=== PATIENT | female | born 1955 | race African-American/Black ===

== ENCOUNTER 2017-06-06 09:37 | Inpatient (IN) | payer MEDICARE, MEDICAID ==
[2017-06-06] MEDS ORDERED: methylPREDNISolone Sod Succ/PF 125 MG/2 ML VIAL ONE (09:55)
[2017-06-06 10:12] LABS: #Eosinphils 0.1 thou/uL (0.0-0.7); #Lymphocytes 1.1 thou/uL (1.20-3.40); #Monocytes 2.4 thou/uL (0.11-0.59); #Neutrophils 16.2 thou/uL (1.40-6.50); %Basophils 0.1 % (0.0-1.0); %Eosinophils 0.3 % (0.0-10.0); %Lymphocytes 5.5 % (21.0-51.0); %Monocytes 12.1 % (0.0-10.0); %Neutrophils 82.1 % (42.0-75.0); Mean Corpuscular HGB CONC 28.7 g/dL (32.0-36.0); Mean Corpuscular Hemoglobin 20.7 pg (27.0-31.0); Mean Corpuscular Volume 72.1 fl (81.0-99.0); Mean Platelet Volume 8.2 fL (7.4-10.4); Platelet Count 568 thou/uL (130-400); RBC Distribution Width 16.9 % (11.5-14.5); Red Blood Cell (RBC) Count 3.37 mill/uL (4.20-5.40); White Blood Cell (WBC) Count 19.8 thou/uL (4.8-10.8)
--- NOTE | 2017-06-06 10:15 | RAD ---
PORTABLE CHEST ONE VIEW: History: Dyspnea. Date: 06-06-17 Time: 10:08 a.m. History: Dyspnea. FINDINGS: Comparison is made with 08-13-12. The heart size is normal. The lungs are well expanded without focal areas of consolidation, pneumotho rax or pleural effusions. IMPRESSION: No radiographic evidence of acute cardiopulmonary process. POS: [facility]
[2017-06-06 10:26] LABS: Hypochromia MODERATE=16-30 cells (100X) (0-5/hpf); MDiff Complete? YES; Microcytosis MODERATE=15-30 cells (100X) (0-5/hpf); PLT Morphology Comment Appears Increased; Polychromasia SLIGHT = 2-3 cells (100X) (0-2/hpf); Reflex for Review?? YES; Target Cells SLIGHT = 2-5 cells (100X) (0-1/hpf)
[2017-06-06 10:40] LABS: ALT (SGPT) 19 U/L (8-55); AST (SGOT) 81 U/L (5-34); Albumin 3.3 g/dL (3.5-5.0); Alkaline Phosphatase 348 U/L (40-150); Anion Gap 13 mmol/L (10-20); BUN (Urea Nitrogen) 11 mg/dL (9.8-20.1); Bilirubin, Total 0.9 mg/dL (0.2-1.2); CK (CPK) 336 U/L (29-168); Calc. Creatinine Clearance 0 mL/min (70-130); Calcium 8.9 mg/dL (7.8-10.44); Carbon Dioxide 28 mmol/L (22-29); Chloride 97 mmol/L (98-107); Estimated GFR-MDRD Greater than 90; Globulin 3.6 g/dL (2.4-3.5); Glucose 110 mg/dL (70-105); Lipase 20 U/L (8-78); Potassium 3.2 mmol/L (3.5-5.1); Protein, Total 6.9 g/dL (6.0-8.3); Sodium 135 mmol/L (136-145)
[2017-06-06 10:45] LABS: CKMB 3.9 ng/mL (0-6.6); Troponin I Less than 0.010 ng/mL (< 0.028)
[2017-06-06 10:55] LABS: Actual Bicarbonate (HCO3a) 28.1 mEq/L (22-26); Base Excess (BEa) 4.4 mEq/L (0 (+/-) 2.5); CO2 Tension 37.6 mmHg (35.0-45.0); Hematocrit-ABG 27.4 % (36.0-47.0); Hemoglobin (Hb) 6.5 g/dL (12.0-16.0); O2 Tension (PaO2) 107.4 mmHg (80.0-100.0); pH, Arterial 7.49 (7.35-7.45)
[2017-06-06 10:56] LABS: Analyzer IN Cardio ER; Calcium, Ionized 1.1 mmol/L (1.12-1.30); Puncture Site LRA
[2017-06-06 12:01] LABS: CO2 Tension 51.8 mmHg (35.0-45.0); O2 Tension (PaO2) 55.5 mmHg (80.0-100.0); pH, Arterial 7.35 (7.35-7.45)
[2017-06-06 12:02] LABS: Analyzer IN Cardio ER; Base Excess (BEa) 2.1 mEq/L (0 (+/-) 2.5); Calcium, Ionized 1.1 mmol/L (1.12-1.30); Hemoglobin (Hb) 6.9 g/dL (12.0-16.0)
[2017-06-06 12:03] LABS: Puncture Site LBA
--- NOTE | 2017-06-06 12:06 | CT ---
CT ANGIO CHEST PERFORMED WITH INTRAVENOUS CONTRAST ENHANCEMENT WITH 3D RECONSTRUCTIONS: Date: 06/06/17 HISTORY: Dyspnea. FINDINGS: The lungs are clear of any infiltrative process. No pulmonary nodules or pleural effusions are demons trated. There is a destructive lytic bone lesion involving the posterolateral left 9th rib. There are innumerable masses involving the liver. The thoracic aorta is normal in caliber. There is fairly good pulmonary artery opacification. No CT e vidence for pulmonary embolus. Only a portion of the colon is visualized, but there is an area in the splenic flexure where the colo n wall appears thickened. IMPRESSION: 1. No CT evidence of pulmonary embolus. 2. Innumerable masses throughout the liver, compatible with metastatic disease. There is also what a ppears to be some probable periportal adenopathy. There is a lytic posterolateral 9th rib lesion also identified. All these features are suggestive of metastatic disease. There is some colon wall thicke pavithra in the splenic flexure region which is partially visualized on this exam and could be the primar y malignancy. Findings discussed with referring physician. CODE CR. POS: [facility]
[2017-06-06] MEDS ORDERED: Lactated Ringer's 1,000 ML IV SCH (14:45)
--- NOTE | 2017-06-06 14:46 | RAD ---
PORTABLE SUPINE CHEST: Date: 06/06/17 HISTORY: Post intubation. COMPARISON: Earlier exam from same date. FINDINGS: Endotracheal and NG tubes have been placed, which appear to be in satisfactory position. No new findi ngs. IMPRESSION: Endotracheal and NG tubes in satisfactory position. POS: [facility]
[2017-06-06 15:00] LABS: Hemoglobin 6.7 g/dL (12.0-16.0)
[2017-06-06 15:05] LABS: INR-International Normal Ratio 1.1; Prothrombin Time 13.8 SEC (12.0-14.7)
[2017-06-06] MEDS ORDERED: Potassium Chloride 40 MEQ in Sodium Chloride 0.9% 500 ML IVPB SCH (15:15)
[2017-06-06] MEDS ORDERED: Pantoprazole 40 MG VIAL IVP SCH (15:15)
--- NOTE | 2017-06-06 15:36 | CON ---
DATE OF CONSULTATION: 06/06/2017 SERVICE: Pulmonary Medicine. REASON FOR CONSULTATION: Respiratory failure. HISTORY OF PRESENT ILLNESS: The patient is a 61-year-old -[place] female with past medical history significant for essentially nothing. She has a remote history of smoking. Apparently she has some degree of COPD. It is not clear whether or not she is taking any medications for this. Ultimately, she was in her usual state of health until 3 days ago. She had a gradual onset of increasing difficulty with breathing. She also noted epigastric discomfort. Outside of this, really not certain what brought her to the hospital. She cannot provide me any additional elements of the history because she currently is sedated and intubated. PAST MEDICAL HISTORY: 1. COPD. 2. History of tobacco abuse. PAST SURGICAL HISTORY: 1. Tubal ligation. 2. Thyroid surgery. ALLERGIES: No known drug allergies. MEDICATIONS: List of her inpatient medications were reviewed and multiple updates were made. SOCIAL HISTORY: She previously lived in [place]. She has a 60-pack- year history of smoking, but quit over 10 years ago. She previously denied any alcohol or illicit drugs. FAMILY HISTORY: Likely noncontributory. REVIEW OF SYSTEMS: This cannot be obtained as the patient is currently intubated and sedated. PHYSICAL EXAMINATION: VITAL SIGNS: Afebrile, pulse 66, blood pressure 109/70, respirations 20, saturation 95% on 27% FIO2 and a PEEP of 5. HEENT: Normocephalic, atraumatic. Sclerae white, conjunctivae pale. LUNGS: Excellent air entry. There is minimally prolonged expiratory phase. I do not appreciate any adventitious sounds, wheezing, rhonchi, or crackles. HEART: Normal rate, regular. ABDOMEN: Soft, nontender, nondistended. Bowel sounds are positive. There is no rebound or guarding noted. : Otero catheter in place. NEUROLOGIC: Grossly nonfocal. MUSCULOSKELETAL: No cyanosis or clubbing. There is no pitting in the bilateral lower extremities. LABORATORY DATA: WBC is 19.8, hemoglobin 7.0 (baseline of 10-11 in 10/2016), platelets 568,000. D-dimer 3.2. PH 7.35, pCO2 of 51, pO2 of 55. This was on SIMV at that time. Please note that while the patient was on BiPAP on presentation to the hospital, she actually had a respiratory alkalosis. Alkaline phosphatase is 348. AST is minimally elevated. ALT falls within normal limits. Potassium 3.2. Basic metabolic profile is otherwise unremarkable. Her creatinine is stable at 0.68. BNP 120.9. Lipase is negative , cardiac enzymes are negative x1. CRP is minimally elevated at 0.55. Blood cultures x2 are unremarkable. IMAGING: CTA of the chest demonstrates no evidence of pulmonary embolism. There is no acute cardiopulmonary abnormality. Lungs are hyperexpanded. There are several masses and nodular lesions throughout the liver. There is also thickening of the sigmoid region of the colon. There is what appeared to be bony involvement throughout the skeletal system as well. ASSESSMENT: 1. Acute hypoxic respiratory failure. 2. Chronic obstructive pulmonary disease without evidence of acute exacerbation. 3. Anemia, possibly acute. 4. Epigastric pain. 5. Metastatic disease involving liver and bones with sigmoid colon thickening, primary unknown. PLAN: We will check her INR and TSH. Couple of doses of potassium will be provided. We are going to transfuse 2 units of blood as my suspicion is the patient's difficulty with breathing was secondary to acute or subacute anemia. We are going to trend the hemoglobins through time and make certain that she maintain hemoglobin greater than 7. Pulmonary Critical Care will continue to follow while the patient remains in this location. Truth be told, her lung disease is minimal and/or nonexistent. COPD exacerbation is not the reason the patient is in the hospital or on the ventilator based on her current respiratory support that is required. We will continue her nebulized medications, but I will de-escalate her steroids to once daily dosing. Antibiotics will be suspended as I have no evidence of infection. CRITICAL CARE TIME: 30 minutes. MTDD
[2017-06-06] MEDS: Pantoprazole 40 MG VIAL IVP SCH (15:39)
[2017-06-06] MEDS: Sodium Chloride 0.9% 1,000 ML IV SCH (15:40)
[2017-06-06] MEDS ORDERED: Propofol 1,000 MG/100 ML VIAL IV ONE (16:44)
[2017-06-06] MEDS ORDERED: DISCONTINUE PREVIOUS NARCOTIC PAIN MEDICATIONS AND BENZODIAZEPINES FS SCH (16:50)
[2017-06-06] MEDS ORDERED: Lorazepam 2 MG/ML VIAL SLOW IVP PRN (16:50)
[2017-06-06] MEDS ORDERED: fentaNYL Citrate/PF 2,000 MCG in Sodium Chloride 0.9% 60 ML IV SCH (16:50)
[2017-06-06] MEDS ORDERED: ISOVUE-370 76%-LOCM 1 ML ONE (16:54)
[2017-06-06] MEDS ORDERED: GoLYTELY 4,000 ml Bottle PO SCH (18:00)
[2017-06-06] MEDS ORDERED: FLU VACC QS2017-18 36 mo. & older 0.5 ML SYRINGE IM ONE (21:00)
[2017-06-06] MEDS ORDERED: Famotidine 20 MG TAB PO SCH (21:00)
[2017-06-06] MEDS ORDERED: Prevnar 13-Val Conj/PF 0.5 ML SYRINGE IM ONE (21:00)
[2017-06-06] MEDS: Propofol 1,000 MG/100 ML VIAL IV PRN (21:25)
--- NOTE | 2017-06-06 23:24 | CON ---
DATE OF CONSULTATION: 06/06/2017 REASON FOR CONSULTATION: Abnormal GI imaging, anemia. CONSULTING PHYSICIAN: Kush Moya MD HISTORY OF PRESENT ILLNESS: The patient is a 61-year-old -Swazi female with past medical h istory of tobacco abuse, COPD, initially presenting with complaints of increased shortness of breath and respiratory distress. She was seen in the ER with complaints of increased work of breathing and shortness of breath and experienced acute respiratory distress while being evaluated. She was subseq uently intubated and sedated for better control on her breathing status; however, upon routine labs, she was noted to have significant anemia as well as abnormal imaging with innumerable liver masses co nsistent with metastatic disease. At the current time, she is intubated and sedated, and unable to contribute to any further history wi th the remainder of the information obtained per chart review. REVIEW OF SYSTEMS: A 10-category review of systems cannot be obtained at this time due to the patien t's intubation/sedation status. PAST MEDICAL HISTORY: As per HPI. PAST SURGICAL HISTORY: Tubal ligation, thyroid surgery. FAMILY HISTORY: Unable to be obtained due to the patient being intubated/sedated. SOCIAL HISTORY: Unable to be obtained due to the patient's status of intubation/sedation. INPATIENT MEDICATIONS: Reviewed. ALLERGIES: No known drug allergies. PHYSICAL EXAMINATION: VITAL SIGNS: Temperature of 98.5, pulse 79, blood pressure 156/97, respiratory rate 20, satting 100% on mechanical ventilation. GENERAL: Patient is intubated and sedated with no apparent distress or grimacing noted. NECK: Supple. No JVD noted. CARDIOVASCULAR: Regular rate and rhythm with no discernible murmurs, gallops, or rubs. RESPIRATORY: Clear to auscultation bilaterally with no discernible wheezes or rales. ABDOMEN: Normoactive bowel sounds, soft, nondistended, mild grimacing to palpation in the right uppe r quadrant region as well as hepatomegaly noted. EXTREMITIES: No cyanosis, clubbing, or edema. LABORATORY DATA: CBC with a white blood cell count of 19.8, hemoglobin 7, hematocrit 24.3, platelets 568. Chemistry with a sodium of 135, potassium 3.2, chloride 97, CO2 of 28, BUN 11, creatinine 0.68 , glucose 110, AST 81, ALT 19, alkaline phosphatase 348, total bilirubin 0.9. BNP 120. CK 336, albu min 3.3, lipase 20. IMAGING DATA: CT angiography performed on 06/06/2017 showing innumerable masses throughout the liver compatible metastatic disease. There is also a lytic posterolateral of 9th rib lesion also suggesti ve of metastatic disease and lastly, there was some colon wall thickening within the splenic flexure region, which could be a potential primary source. ASSESSMENT AND PLAN: The patient is a 61-year-old female with past medical history of COPD and tobac co abuse presenting with respiratory distress and abnormal GI imaging and anemia. 1. Anemia/abnormal GI imaging. The patient is initially presenting with complaints of increased agueda rtness of breath and work of breathing, but ultimately progressed to respiratory distress and ultimat e intubation and sedation. On review of routine labs, she was noted to be significantly anemic bear rning for possible underlying process; however, with CT of the chest as part of the workup, she was n oted to have innumerable liver masses consistent with metastatic disease in the ribs and a possible s plenic flexure or colonic malignancy primary. At this time, a colonic malignancy could generate the anemia that we are seeing as well as the liver abnormalities on imaging and endoscopic evaluation tariq l be indicated. RECOMMENDATIONS: 1. Would continue to trend H and H and transfuse as necessary to maintain an H and H of 7/21. 2. Would continue to monitor clinically for signs of overt gastrointestinal bleeding. 3. We will plan for both EGD and colonoscopy tomorrow for evaluation of anemia and possible primary colonic malignancy. Please place the patient n.p.o. at midnight tonight with GoLYTELY prep in prepar ation for colonoscopy tomorrow. We will continue to follow. Please call with any questions.
[2017-06-07] MEDS: Propofol 1,000 MG/100 ML VIAL IV PRN ×6 (02:08→22:19)
--- NOTE | 2017-06-07 06:02 | HP ---
DATE OF ADMISSION: 06/06/2017 REASON FOR ADMISSION AND CHIEF COMPLAINT: Shortness of breath. HISTORY OF PRESENT ILLNESS: Ms. León is a 61-year-old -Algerian female with past medical history of COPD, came because of shortness of breath. No history available from the patient. The patient is intubated and sedated. According to the ER chart, the patient's shortness of breath was getting worse in the last 3 days, to the point she could not breathe and also had some epigastric pain as well. The patient describes that shortness of breath as chest tightness as well as wheezing. The patient came to the emergency room, where she was evaluated and found to be in acute respiratory distress, initially put on BiPAP. The patient also used inhalers at home. The patient also received DuoNebs treatment as well as Solu-Medrol in the ER. The patient had a CT angio chest showed no pulmonary embolism, but showed possible mets to the liver. She also gave history to the ER physician that she had black stools with weight loss lately. The patient was intubated because of increased somnolence and chest tightness, and admitted to CCU. The patient was started on blood transfusion as well. PAST MEDICAL HISTORY: COPD and chronic pain ankle arthritis, depression PAST SURGICAL HISTORY: 1. Status post thyroid surgery, left lobe 2. Status post tubal ligation. 3. s/p total hysterectomy CURRENT MEDICATIONS: prozac 20 mg daily, albuterol sulphate HFA inhaler 2 puffsqid prn, tramadol prn FAMILY HISTORY: nothing significant. ALLERGIES: NKDA. SOCIAL HISTORY: The patient lives alone. History of [id number] history in the past, quit smoking. No history of alcohol or illicit drug use. REVIEW OF SYSTEMS: Unable to obtain because the patient is intubated and sedated. PHYSICAL EXAMINATION: GENERAL: The patient is sedated and intubated. VITAL SIGNS: Temperature 98, pulse 66, respirations 20, blood pressure 110/70. HEENT: Head is normocephalic, atraumatic. Pupils equal and reactive to light. Nasopharynx could not be examined. LUNGS: Breath sounds diminished bilaterally. Expiratory wheeze present bilaterally. Rhonchi present. HEART: S1 and S2 regular. ABDOMEN: Soft, no distention, no tenderness. Normal bowel sounds present. RECTAL: Rectal exam done showed melena stool in the ER. LABORATORY DATA: CBC shows WBC of 19,000, hemoglobin 7, hematocrit 24, platelets 568,000. Prothrombin time 13, INR 1.0. ABG showed pH of 7.49, pCO2 of 37, pO2 of 107, saturation 98%. Metabolic panel shows sodium 135, potassium 3.8, chloride 97, CO2 of 28, BUN 11, creatinine 0.6, glucose 110, alkaline phosphate 348, creatine kinase 336, ALT 19, AST 81. BNP 120. Troponin I less than 0.010. Chest x-ray showed no infiltrates. She has the endotracheal tube in place. CT of the chest showed no evidence of pulmonary embolism, showed multiple masses in the liver, possible metastasis, also showed lytic lesion in the 9th rib, also there is thickening in the colon wall. ASSESSMENT: 1. Acute respiratory failure. 2. Chronic obstructive pulmonary disease with acute exacerbation. 3. Severe anemia. 4. Possible metastasis to the liver and left 9th rib. 5. Rule out colon cancer. 6. Hypokalemia. 7. History of black stools and weight loss. PLAN: 1. CCU monitoring. 2. Ventilator support. 3. Solu-Medrol IVP 20 q.6 hours. 4. DuoNebs q.4 hours one unit. 5. Transfuse 2 units of packed red blood cells. 6. KCl replacement. 7. CBC and base met in the morning. 8. Pulmonary consult. 9. GI consult. VALERIA
[2017-06-07 06:10] LABS: ALT (SGPT) 19 U/L (8-55); AST (SGOT) 74 U/L (5-34); Alkaline Phosphatase 308 U/L (40-150); Anion Gap 12 mmol/L (10-20); BUN (Urea Nitrogen) 17 mg/dL (9.8-20.1); Bilirubin, Total 1.6 mg/dL (0.2-1.2); Calc. Creatinine Clearance 70 mL/min (70-130); Calcium 8.6 mg/dL (7.8-10.44); Carbon Dioxide 28 mmol/L (22-29); Chloride 106 mmol/L (98-107); Estimated GFR-MDRD Greater than 90; Globulin 3.4 g/dL (2.4-3.5); Glucose 90 mg/dL (70-105); Magnesium 2.1 mg/dL (1.6-2.6); Phosphorus 3.3 mg/dL (2.3-4.7); Potassium 3.9 mmol/L (3.5-5.1); Protein, Total 6.4 g/dL (6.0-8.3); Sodium 142 mmol/L (136-145)
[2017-06-07 06:47] LABS: Hemoglobin 8.8 g/dL (12.0-16.0); Mean Corpuscular HGB CONC 29.6 g/dL (32.0-36.0); Mean Corpuscular Hemoglobin 23.1 pg (27.0-31.0); Mean Corpuscular Volume 78.1 fl (81.0-99.0); Mean Platelet Volume 8.7 fL (7.4-10.4); Platelet Count 468 thou/uL (130-400); RBC Distribution Width 18.4 % (11.5-14.5); White Blood Cell (WBC) Count 24.9 thou/uL (4.8-10.8)
[2017-06-07 07:58] LABS: Band 4 % (5-11); Eosinophils 1 % (0-10); Hypochromia MODERATE=16-30 cells (100X) (0-5/hpf); Lymphocytes 3 % (21-51); MDiff Complete? YES; Microcytosis SLIGHT = 6-15 cells (100X) (0-5/hpf); Monocytes 5 % (0-10); Neutrophil 87 % (42-75); PLT Morphology Comment Appears Increased; Polychromasia SLIGHT = 2-3 cells (100X) (0-2/hpf); Target Cells SLIGHT = 2-5 cells (100X) (0-1/hpf)
[2017-06-07] MEDS: Sodium Chloride 0.9% 1,000 ML IV SCH (08:04)
[2017-06-07] MEDS: Pantoprazole 40 MG VIAL IVP SCH ×2 (08:16→20:00)
[2017-06-07] MEDS: Sodium Chloride 0.45% 1,000 ML IV SCH ×2 (10:33→20:00)
--- NOTE | 2017-06-07 11:28 | PRG ---
DATE OF SERVICE: 06/07/2017 SERVICE: Pulmonary Medicine. INTERVAL HISTORY: The patient is doing really well from a respiratory standpoint. On a sedation holiday, she is appropriate. She gets a little bit agitated, but she moves all 4 extremities and breathes comfortably over the ventilator. She is on minimal ventilator settings. The plan is to do an EGD and colonoscopy today. After that, weaning will be initiated. She cannot provide any additional elements of the history, because she is back on sedation. Otherwise, there has been no interval change to her condition. Her tachycardia has resolved with 2 units of blood that she got yesterday. PHYSICAL EXAMINATION: VITAL SIGNS: Afebrile, pulse 74, blood pressure 136/79, respirations 22, saturation 100% on 23% FiO2 and PEEP of 5. GENERAL: The patient is intubated and sedated. HEENT: Normocephalic, atraumatic. Sclerae are white, conjunctivae pink. Oral and nasal mucosa is moist without lesions. LUNGS: Excellent air entry. Minimally prolonged expiratory phase. No rhonchi or wheezing is appreciated. HEART: Normal rate, regular. ABDOMEN: Soft, nontender, nondistended. Bowel sounds are positive. No rebound or guarding is appreciated. HEART: Normal rate and regular. MUSCULOSKELETAL: No cyanosis or clubbing. There is no pitting in the bilateral lower extremities. NEUROLOGIC: Grossly nonfocal. LABORATORY DATA: WBC 24.9, hemoglobin 8.8, platelets 268,000. Neutrophil count is 87%. INR 1.1. Basic metabolic profile is otherwise unremarkable. Total bilirubin is going up to 1.6, AST is stable. ALT is gently down trending. BNP was previously 120, TSH was normal. ASSESSMENT: 1. Acute hypoxic respiratory failure, resolved. 2. Chronic obstructive pulmonary disease without current exacerbation. 3. Acute blood loss anemia. 4. Epigastric pain on presentation. 5. Metastatic disease involving the liver, bones, and sigmoid colon thickening , primary unknown. DISCUSSION AND PLAN: I will repeat a hemoglobin at noon today. Supportive measures will be continued, so she can have the EGD and colonoscopy. After this is done, she will be given a sedation holiday and extubation will be considered. Pulmonary and Critical Care will continue to follow while the patient remains in this location. CRITICAL CARE TIME: 30 minutes. MTDD
[2017-06-07 12:14] LABS: Hemoglobin 8.9 g/dL (12.0-16.0)
--- NOTE | 2017-06-07 21:53 | OP ---
PREOPERATIVE DIAGNOSIS: Hepatic metastases of unknown origin. PROCEDURE: After informed consent was obtained, the patient was placed in the left lateral decubitus position. Anesthesia was administered per the Anesthesia Department. Forward-viewing endoscope was inserted into the esophagus under direct visualization with ease and passed to the second portion of the duodenum. The second portion of the duodenum and the duodenal bulb were normal except for some nodules. These nodules were biopsied and seemed to be somewhat fluid filled. The remainder of the d uodenum was normal. The pylorus, antrum, body, fundus, and cardia were normal. Retroflexion of the stomach was normal. The esophagus was normal throughout. ASSESSMENT: 1. Fluid filled submucosal nodules - status post biopsy. 2. Otherwise, normal esophagogastroduodenoscopy. RECOMMENDATIONS: 1. Await histopathology. 2. Proceed with colonoscopy. PROCEDURE: After informed consent was obtained, the patient was placed in the left lateral decubitus position. Anesthesia was administered per the Anesthesia Department. Forward-viewing endoscope was inserted into the rectum after perianal inspection and rectal exam were normal. The prep was subopt imal, but had approximately 40 cm. A complete circumferential mass was noted. This mass could not b e passed with the colonoscope. It was biopsied near the mass in the more proximal or distal region, next to the mass was a large polypoid lesion. This was also approximately 40 cm. The remainder of t he sigmoid and rectum were normal. Retroflexion in the rectum was normal. ASSESSMENT: 1. Near obstructing colon mass at approximately 40 cm - status post biopsy. 2. Otherwise, normal incomplete colonoscopy. RECOMMENDATIONS: 1. Await histopathology. 2. CEA.
[2017-06-08] MEDS: Propofol 1,000 MG/100 ML VIAL IV PRN (02:37)
[2017-06-08] MEDS: Sodium Chloride 0.45% 1,000 ML IV SCH ×2 (05:15→15:31)
[2017-06-08 06:26] LABS: #Lymphocytes 1.6 thou/uL (1.20-3.40); #Monocytes 2.8 thou/uL (0.11-0.59); #Neutrophils 19.1 thou/uL (1.40-6.50); %Basophils 0.1 % (0.0-1.0); %Eosinophils 0.2 % (0.0-10.0); %Monocytes 11.9 % (0.0-10.0); %Neutrophils 80.8 % (42.0-75.0); Hemoglobin 8.9 g/dL (12.0-16.0); Hypochromia MODERATE=16-30 cells (100X) (0-5/hpf); MDiff Complete? YES; Mean Corpuscular HGB CONC 29.2 g/dL (32.0-36.0); Mean Corpuscular Hemoglobin 22.8 pg (27.0-31.0); Mean Corpuscular Volume 77.8 fl (81.0-99.0); Mean Platelet Volume 8.9 fL (7.4-10.4); PLT Morphology Comment Appears Increased; Platelet Count 453 thou/uL (130-400); RBC Distribution Width 19.4 % (11.5-14.5); Red Blood Cell (RBC) Count 3.93 mill/uL (4.20-5.40); Target Cells SLIGHT = 2-5 cells (100X) (0-1/hpf); White Blood Cell (WBC) Count 23.6 thou/uL (4.8-10.8)
[2017-06-08 06:30] LABS: Anion Gap 11 mmol/L (10-20); BUN (Urea Nitrogen) 20 mg/dL (9.8-20.1); Calc. Creatinine Clearance 88 mL/min (70-130); Calcium 8.3 mg/dL (7.8-10.44); Carbon Dioxide 28 mmol/L (22-29); Chloride 104 mmol/L (98-107); Estimated GFR-MDRD Greater than 90; Potassium 3.4 mmol/L (3.5-5.1); Sodium 140 mmol/L (136-145)
[2017-06-08 06:33] LABS: Glucose 59 mg/dL (70-105)
[2017-06-08] MEDS ORDERED: Dextrose 50% Abboject 50 ML SYRINGE ONE (06:33)
[2017-06-08] MEDS ORDERED: Dextrose 50% Abboject 50 ML SYRINGE SLOW IVP SCH (06:45)
[2017-06-08] MEDS: Pantoprazole 40 MG VIAL IVP SCH ×2 (08:51→19:55)
[2017-06-08] MEDS ORDERED: Potassium Chloride 20 MEQ in Premix Bag 1 BAG IVPB SCH (15:30)
[2017-06-08 15:39] LABS: Bilirubin Small (Negative); Blood, Urine Negative (Negative); Clarity CLEAR (Clear); Glucose, Urine (Dipstick) Negative (Negative); Leukocyte Small (Negative); Nitrite Negative (Negative); Protein, Urine (Dipstick) Trace mg/dL (Neg-Trace); Specific Gravity, Urine 1.021 (1.002-1.036)
[2017-06-08 15:42] LABS: Bacteria/HPF None Seen HPF (None Seen); Hyaline Casts/LPF 7-10 HYALINE CAST LPF (0-3 Hyaline); Pathc Cast-AUWi Flag 1.62 (0-2.49); RBC/HPF 0-3 HPF (0-3); Squamous Epithelial 0-3 HPF (0-3); WBC/HPF 0-3 HPF (0-3)
--- NOTE | 2017-06-08 16:01 | PRG ---
DATE OF SERVICE: 06/08/2017 REASON FOR CONSULTATION: Abnormal GI imaging, anemia. SUBJECTIVE: The patient is doing well overnight without any acute problems or events. She had been off of sedation since this morning and while on minimal vent settings, has been able to tolerate this hemisphere just fine. Current plan is to extubate later on today. She also had an upper and lower endoscopy done yesterday with adequate visualization of both the upper and lower GI tract. At the cu rrent time, the patient is alert and oriented and able to respond to the affirmative or negative with nods or shaking of her head. Currently, denies any nausea, vomiting, fevers, chills, or pain. OBJECTIVE: VITAL SIGNS: Temperature 99, pulse 98, blood pressure 173/103, respiratory rate 22, satting 99% on m echanical ventilation. PHYSICAL EXAMINATION: GENERAL: The patient is lying in bed, in no acute distress, alert, but unable to respond to verbal q uestions due to intubation. NECK: Supple, no JVD noted. CARDIOVASCULAR: Regular rate and rhythm with no discernible murmurs, gallops or rubs. RESPIRATORY: Clear to auscultation bilaterally with no discernible wheezes or rales. ABDOMEN: Normoactive bowel sounds, soft, nondistended. Mild tenderness to palpation in the right up per quadrant region as well as hepatomegaly. EXTREMITIES: No cyanosis, clubbing or edema. LABORATORY DATA: CBC with white blood cell count of 23.6, hemoglobin 8.9, hematocrit 30.6, platelets 453. Chemistry with sodium of 140, potassium 3.4, chloride 104, CO2 of 28, BUN 20, creatinine 0.65, glucose 59. CEA 52.3. IMAGING DATA: Colonoscopy performed on 06/07/2017 showing small fluid-filled nodules within the seco nd portion of the duodenum, but otherwise no other abnormalities on the upper endoscopy. Colonoscopy showed a near obstructing colonic mass at approximately 40 cm past the anal verge and it could not b e traversed with the standard colonoscope. ASSESSMENT: The patient is a 61-year-old female with past medical history of chronic obstructive pul monary disease and tobacco abuse presenting with respiratory distress and abnormal gastrointestinal i maging consistent with metastatic disease. Metastatic disease: The patient initially presented with complaints of increased shortness of breath and work of breathin g, but ultimately progressed to respiratory distress and ultimately was intubated and sedated. On re view of labs on admission, she was noted to have a significant anemia concerning for a possible under lying process with the CT showing innumerable liver masses consistent with metastatic disease. She u ltimately underwent both upper and lower endoscopy on 06/07/2017 with the colonoscopy showing a large near obstructing colonic mass at approximately 40 cm past the anal verge. At this time, the most li casimiro reason for her liver findings on CT would be metastatic disease from a colonic primary as seen o n the colonoscopy. This could also generate the anemia seen on labs on admission as well. RECOMMENDATIONS: 1. Would continue to trend H and H and transfuse as necessary to maintain an H and H of 7/21. 2. We would consult General Surgery Service for evaluation of the patient and possible colostomy giv en the near obstructive nature of the colonic malignancy. 3. Would also consult Medical Oncology for evaluation of the patient and recommendations for possibl e chemotherapy and/or radiation. We will sign off at this time. Please call with any additional questions.
[2017-06-08 16:27] LABS: Crystals/HPF None Seen HPF (Negative)
[2017-06-08] MEDS: Piperacillin/Tazobactam 3.375 GM in Sodium Chloride 0.9% 100 ML IVPB SCH ×2 (16:40→19:55)
[2017-06-08] MEDS ORDERED: HYDROcodone/Acetaminophen 5/325 mg Tablet PO PRN (18:45)
--- NOTE | 2017-06-08 19:23 | PRG ---
DATE OF SERVICE: 06/08/2017 SERVICE: Pulmonary Medicine. INTERVAL HISTORY: The patient has done outstanding overnight from cardiovascular and respiratory perspective. She had an EGD yesterday demonstrating no significant pathology or evidence of where her blood was coming from. The subsequent colonoscopy demonstrated a mass. This was subjected to biopsy. This morning, she is breathing comfortably on spontaneous breathing trial. She has no complaints of fevers, chills, nausea, or vomiting, and is otherwise returning to her usual state of health. PHYSICAL EXAMINATION: VITAL SIGNS: Afebrile, pulse 96, blood pressure 178/103, respirations 29, saturation 100% on 21% FIO2 and PEEP of 5. GENERAL: The patient is awake and alert. She is in no apparent distress. HEENT: Normocephalic, atraumatic. Sclerae are white, conjunctivae pink. Oral and nasal mucosa is moist without lesions. LUNGS: Decent air entry. There is minimally prolonged expiratory phase without wheezing, rhonchi, or crackles. HEART: Normal rate, regular. ABDOMEN: Soft, nontender, nondistended. Bowel sounds are positive. MUSCULOSKELETAL: No cyanosis or clubbing. There is no pitting in the bilateral lower extremities. NEUROLOGIC: Grossly nonfocal. LABORATORY DATA: WBC 23.6 and stable, hemoglobin 8.9. Platelets 453,000. Glucose 59, but later improved. Potassium 3.4. CEA 52.6. Urinalysis is unremarkable. ASSESSMENT: 1. Acute hypoxic respiratory failure, resolved. 2. Chronic obstructive pulmonary disease without current exacerbation. 3. Acute blood loss anemia. 4. Metastatic disease including liver lesions, bone lesions, and colon lesion, status post biopsy during colonoscopy. DISCUSSION AND PLAN: We will give the patient spontaneous breathing trial. At the end of this thing, if she meets criteria, extubation will be considered. If she continues to breathe comfortably throughout the day, she can be considered for transition to the floor. I will replace her potassium. Critical care time: 30 minutes. MTDD
[2017-06-08] MEDS: cloNIDine 0.1 MG TAB PO PRN (19:55)
[2017-06-09] MEDS: Piperacillin/Tazobactam 3.375 GM in Sodium Chloride 0.9% 100 ML IVPB SCH ×4 (02:10→20:15)
[2017-06-09] MEDS: cloNIDine 0.1 MG TAB PO PRN (04:06)
[2017-06-09 05:41] LABS: Anion Gap 11 mmol/L (10-20); BUN (Urea Nitrogen) 9 mg/dL (9.8-20.1); Calc. Creatinine Clearance 92 mL/min (70-130); Calcium 8.8 mg/dL (7.8-10.44); Carbon Dioxide 28 mmol/L (22-29); Chloride 104 mmol/L (98-107); Estimated GFR-MDRD Greater than 90; Glucose 97 mg/dL (70-105); Potassium 3.5 mmol/L (3.5-5.1); Sodium 139 mmol/L (136-145)
[2017-06-09 06:23] LABS: Anisocytosis SLIGHT = 6-15 cells (100X) (0-5/hpf); Band 1 % (5-11); Hemoglobin 9.2 g/dL (12.0-16.0); Hypochromia MODERATE=16-30 cells (100X) (0-5/hpf); Lymphocytes 8 % (21-51); MDiff Complete? YES; Mean Corpuscular HGB CONC 30.3 g/dL (32.0-36.0); Mean Corpuscular Hemoglobin 23.4 pg (27.0-31.0); Mean Corpuscular Volume 77.3 fl (81.0-99.0); Mean Platelet Volume 8.9 fL (7.4-10.4); Monocytes 11 % (0-10); Neutrophil 80 % (42-75); Platelet Count 406 thou/uL (130-400); Polychromasia SLIGHT = 2-3 cells (100X) (0-2/hpf); RBC Distribution Width 19.8 % (11.5-14.5); Red Blood Cell (RBC) Count 3.93 mill/uL (4.20-5.40); White Blood Cell (WBC) Count 24.8 thou/uL (4.8-10.8)
[2017-06-09] MEDS: Pantoprazole 40 MG VIAL IVP SCH ×2 (08:42→20:14)
--- NOTE | 2017-06-09 10:29 | CON ---
DATE OF CONSULTATION: 06/09/2017 CHIEF COMPLAINT: Near obstructing colon mass. HISTORY OF PRESENT ILLNESS: This is a 61-year-old female who was actually admitted for respiratory d istress and intubated and found on CAT scan to have evidence of hepatic metastatic disease. She has undergone upper and lower endoscopy by Dr. Simeon revealing near obstructing likely cancer of 40 cm fro m anal verge. Her CEA level is significantly elevated. The patient was able to be prepped for the c olonoscopy and with the oral prep did have lots of diarrhea. The patient herself has some chronic de mentia and is not able to be trusted to answer questions properly at this time. She does state that she has no abdominal pain and she is hungry. PAST MEDICAL HISTORY: Includes COPD. PAST SURGICAL HISTORY: Includes tubal ligation, thyroid surgery. MEDICINES TAKEN DAILY: See list. ALLERGIES: No known drug allergies. SOCIAL HISTORY: Chronic smoker. Does not admit any alcohol or other drug use. REVIEW OF SYSTEMS: Ten system review of systems otherwise negative unless described above. PHYSICAL EXAMINATION: VITAL SIGNS: Blood pressure 147/97, her heart rate is 106, respiratory rate is 25, O2 sat 99%. HEENT: Sclerae are anicteric. Oropharynx clear. NECK: No lymphadenopathy. CHEST: Clear. HEART: Regular rate and rhythm. ABDOMEN: Soft, no obvious mass, minimally distended. EXTREMITIES: No ischemia or edema to extremities. LABORATORY DATA: Creatinine 0.61. CEA level is 52. ASSESSMENT: Likely metastatic colon cancer. She was able to take the prep and so this near obstruct ing cancer on colonoscopy is not likely acting clinically completely obstructed. PLAN: I recommend palliative care. May be get input from Oncology, otherwise hospice. We will hold off on any operative procedure unless she needs palliative diverting colostomy, but she tolerated th e prep, she likely does not need that at this time.
[2017-06-09] MEDS ORDERED: methylPREDNISolone Sod Succ/PF 125 MG/2 ML VIAL IVP SCH (11:30)
--- NOTE | 2017-06-09 14:47 | CON ---
DATE OF CONSULTATION: 06/09/2017 REASON FOR CONSULTATION: Colon cancer. HISTORY OF PRESENT ILLNESS: Ms. León is a 61-year-old -[place] female who presented to the emergency room with shortness of breath and respiratory distress. She was subsequently intubated, b ut has now been extubated. CBC on admission showed microcytic anemia with hemoglobin of 7.0. She un derwent an upper and lower endoscopy by Dr. Simeon. The lower endoscopy revealed a near obstructing ma ss at 40 cm from the anal verge. She had biopsies which are currently pending. Her CEA is elevated at 52. The patient admits that she has had some abdominal cramping and diarrhea over the last few we eks. Imaging revealed innumerable liver masses, likely metastatic disease. The patient has now mathieu shivani from her respiratory distress and is being transferred to the floor from the ICU. She denies a ny shortness of breath, chest pain. No nausea, vomiting, diarrhea, constipation or abdominal pain. Patient states she lives in [place] and is independent and denies any recent decline in her ability to care for herself. PAST MEDICAL HISTORY: 1. COPD. 2. Substance abuse. 3. Depression. PAST SURGICAL HISTORY: 1. Thyroidectomy. 2. Tubal ligation. 3. Hysterectomy. ALLERGIES: No known drug allergies. HOME MEDICATION: Albuterol nebulizer p.r.n. FAMILY HISTORY: The patient states that her mother and her brother and sister all had cancer of unkn own type. SOCIAL HISTORY: Independent. Lives with her significant other in [place]. Chronic smoker. Admits t o cocaine use. No alcohol usage. REVIEW OF SYSTEMS: A 12 point review of systems negative except for noted in HPI. PHYSICAL EXAMINATION: VITAL SIGNS: Temperature is 98.2, pulse is 99, respiratory rate is 21, BP is 141/102, sats are 100% on room air. GENERAL: This is a thin -Belarusian female in no acute distress. HEENT: Normocephalic, atraumatic. Pupils are equal and reactive to light. She has poor dentition. NECK: Supple without JVD. CARDIOVASCULAR: Regular rate and rhythm. LUNGS: Diminished throughout. ABDOMEN: Firm. Her liver is palpable. Bowel sounds are positive. EXTREMITIES: No clubbing, cyanosis or edema. SKIN: No rash. HEMATOLOGIC: No petechia or purpura. NEUROLOGIC: Nonfocal. PSYCHIATRIC: The patient is alert and oriented and answers questions appropriately. PERTINENT LABORATORY DATA AND IMAGING DATA: Current WBCs are 24.8, hemoglobin 9.2, hematocrit 30.4, platelet count is 406,000, 80% neutrophils, 8% lymphocytes, 11% monocytes. Sodium is 139, potassium 3.5, chloride 104, CO2 is 28, BUN is 9, and creatinine 0.61. Calcium is 8.8, phosphorus 3.3, magnesi um 2.1, total bilirubin is 1.6, AST is 74, ALT is 19, alkaline phosphatase is 308, serum total protei n 6.4, albumin 3.0, globulin 3.4, CEA is 52.33. Urine was negative for bacteria. Radiology per HPI. ASSESSMENT: 1. Metastatic colon cancer with near obstructing mass at 40 cm above the anal verge. 2. Chronic obstructive pulmonary disease. DISCUSSION: Dr. Esquivel has seen the patient and feels that no surgery is warranted at this time. S he is taking p.o. and having bowel movements with no abdominal pain. She does wish to seek treatment which would include chemotherapy. She may be a candidate for oral Xeloda given her metastatic disea se. We will wait for final path for further recommendations. I will make an appointment for her to follow up in our clinic to discuss this further with one of the doctors should she began to have abdo jose pain, unable to take p.o. We will discuss whether she would like to move forward with surgery at that time. I do recommend palliative care consultation as she will need pain control when she goe s home. Thank you for the consult.
--- NOTE | 2017-06-09 17:03 | PRG ---
DATE OF SERVICE: 06/09/2017 SUBJECTIVE: Ms. León did well overnight. She appears to be clinically stable and be a candidate for transfer out of the critical care unit. OBJECTIVE: VITAL SIGNS: She is afebrile, heart rate is 96, respiratory rate is 18, oximetry is 95% on room air and blood pressure 159/91. LUNGS: Still remarkable for diffuse wheezes. HEART: Regular rhythm. ABDOMEN: Soft. Oncology has been consulted. She was seen by the nurse practitioner today. I met with the daughter who tells me she is going to bring her back up to [place] to "clean her up" and make sure she is compliant with therapy. There is really no need for us to start therapy if the daughter plans on moving her. She wanted us t o transfer her directly to the hospital on [address]. I have explained to her that is another st ate, lateral transfer unless she has $10-15,000 to facilitate the transfer. It would not happen and unlikely would be paid for by Medicare. She said she understood and was willing to take her up there once we release her from the hospital. LABORATORY DATA: White count today is 24.8, hemoglobin 9.2 and platelets 406,000. Electrolytes are normal. Creatinine is 0.6. IMPRESSION AND PLAN: 1. Chronic obstructive pulmonary disease with ongoing bronchospasm. 2. Acute respiratory failure most likely secondary bronchospasm. 3. Status post identification of a colon mass. It is felt to be malignant with evidence of metastat ic disease to liver and bone. Pathology is pending from the . She is stable to move out of the critical care unit. We will place her on IV steroids and treat her with nebulizer treatments since she is wheezing today. Not optimistic based on my interaction with [facility] that she will be compliant with therapy, but hopefully maybe with the daughters input she will.
[2017-06-10] MEDS: Piperacillin/Tazobactam 3.375 GM in Sodium Chloride 0.9% 100 ML IVPB SCH ×4 (02:14→21:40)
[2017-06-10] MEDS: Pantoprazole 40 MG VIAL IVP SCH (08:33)
[2017-06-10] MEDS ORDERED: methylPREDNISolone Sod Succ/PF 125 MG/2 ML VIAL IVP SCH (09:00)
[2017-06-10] MEDS: Mometasone/Formoterol 120 PUFF INHALER INH SCH (19:05)
[2017-06-10] MEDS: Acetaminophen/Codeine 30-300mg Tablet PO PRN (19:49)
--- NOTE | 2017-06-10 20:14 | PRG ---
DATE OF SERVICE: 06/10/2017 SUBJECTIVE: Ms. León did well overnight. She has no complaints. She is not having any shortness of breath today. Her lungs actually sound 100% better. OBJECTIVE: VITAL SIGNS: She is afebrile, heart rate 69, respiratory rate 20, oximetry is 97 on room air, blood pressure 170/89. She is no longer wheezing. IMPRESSION: 1. Reactive airway/chronic obstructive pulmonary disease, improved. 2. Metastatic colon cancer. PLAN: Switch her p.o. medications. Eventually, she plans to be treated in [place] as I unders tand it, but this is totally up to her with her consent. Her daughter was making these decisions whe n she was here yesterday, but her daughter went back to [place].
[2017-06-10] MEDS: cloNIDine 0.1 MG TAB PO PRN (21:04)
[2017-06-11] MEDS: Piperacillin/Tazobactam 3.375 GM in Sodium Chloride 0.9% 100 ML IVPB SCH ×3 (03:22→15:05)
[2017-06-11] MEDS: Mometasone/Formoterol 120 PUFF INHALER INH SCH ×2 (06:48→19:10)
[2017-06-11] MEDS: cloNIDine 0.1 MG TAB PO PRN (08:56)
[2017-06-11] MEDS ORDERED: methylPREDNISolone Sod Succ/PF 125 MG/2 ML VIAL IVP SCH (09:00)
[2017-06-11] MEDS ORDERED: Lisinopril 10 MG TAB PO ONE (09:45)
--- NOTE | 2017-06-11 10:00 | PRG ---
DATE OF SERVICE: 06/11/2017 SUBJECTIVE: The patient is doing better, had no acute complaints. OBJECTIVE: VITAL SIGNS: Temperature is 98.3, pulse 76, blood pressure 170/95, O2 sat 95%. HEENT: Unremarkable. NECK: No JVD. CHEST: Fairly clear. CARDIAC: S1 and S2, regular. ABDOMEN: Distended. EXTREMITIES: No edema. ASSESSMENT 1. Chronic obstructive pulmonary disease with exacerbation. 2. Metastatic colon cancer. PLAN: From a pulmonary standpoint, she is probably stable for discharge. She is continuing nebuliza tion treatments. Her steroids are being weaned.
[2017-06-11 10:31] LABS: Anion Gap 11 mmol/L (10-20); BUN (Urea Nitrogen) 9 mg/dL (9.8-20.1); Calc. Creatinine Clearance 109 mL/min (70-130); Calcium 8.3 mg/dL (7.8-10.44); Carbon Dioxide 32 mmol/L (22-29); Chloride 96 mmol/L (98-107); Estimated GFR-MDRD Greater than 90; Glucose 102 mg/dL (70-105); Sodium 136 mmol/L (136-145)
[2017-06-11 10:35] LABS: Potassium 2.8 mmol/L (3.5-5.1)
[2017-06-11 11:00] LABS: Anisocytosis SLIGHT = 6-15 cells (100X) (0-5/hpf); Eosinophils 1 % (0-10); Hemoglobin 8.9 g/dL (12.0-16.0); Hypochromia MODERATE=16-30 cells (100X) (0-5/hpf); Lymphocytes 2 % (21-51); MDiff Complete? YES; Mean Corpuscular HGB CONC 29.6 g/dL (32.0-36.0); Mean Corpuscular Hemoglobin 23.1 pg (27.0-31.0); Mean Platelet Volume 9.3 fL (7.4-10.4); Microcytosis SLIGHT = 6-15 cells (100X) (0-5/hpf); Monocytes 11 % (0-10); Neutrophil 86 % (42-75); Platelet Count 358 thou/uL (130-400); RBC Distribution Width 20.1 % (11.5-14.5); Red Blood Cell (RBC) Count 3.85 mill/uL (4.20-5.40); White Blood Cell (WBC) Count 27.1 thou/uL (4.8-10.8)
[2017-06-11] MEDS: Potassium Chloride 20 MEQ TAB PO SCH ×4 (12:36→23:35)
[2017-06-11] MEDS ORDERED: Milk Of Magnesia 30 ML UDCUP PO PRN (18:23)
[2017-06-11] MEDS ORDERED: Potassium Chloride 20 MEQ TAB PO SCH (18:30)
[2017-06-12] MEDS: Acetaminophen/Codeine 30-300mg Tablet PO PRN ×3 (03:08→19:15)
[2017-06-12] MEDS: Potassium Chloride 20 MEQ TAB PO SCH (03:08)
[2017-06-12 06:35] LABS: Anion Gap 9 mmol/L (10-20); BUN (Urea Nitrogen) 13 mg/dL (9.8-20.1); Calc. Creatinine Clearance 122 mL/min (70-130); Calcium 8.6 mg/dL (7.8-10.44); Carbon Dioxide 30 mmol/L (22-29); Chloride 96 mmol/L (98-107); Estimated GFR-MDRD Greater than 90; Glucose 65 mg/dL (70-105); Potassium 3.9 mmol/L (3.5-5.1); Sodium 131 mmol/L (136-145)
[2017-06-12] MEDS: Mometasone/Formoterol 120 PUFF INHALER INH SCH ×2 (07:20→21:28)
--- NOTE | 2017-06-12 08:59 | PRG ---
DATE OF SERVICE: 06/12/2017 SUBJECTIVE: The patient is doing better and wants to go home. PHYSICAL EXAMINATION: VITAL SIGNS: Temperature 98.3, pulse 83, respirations 20. HEENT: Unremarkable. NECK: No JVD. CHEST: Clear. CARDIAC: S1 and S2 regular. ABDOMEN: Soft. EXTREMITIES: No edema. ASSESSMENT: Chronic obstructive pulmonary disease exacerbation and metastatic colon cancer. PLAN: She is ready for discharge. No other recommendations from a pulmonary standpoint. Please rec all if further assistance is needed.
[2017-06-12] MEDS ORDERED: Lisinopril 10 MG TAB PO SCH (09:00)
[2017-06-12] MEDS: Polyethylene Glycol 3350 17 GM Packet PO SCH (09:03)
[2017-06-12] MEDS: predniSONE 20 MG TAB PO SCH (09:03)
[2017-06-12 11:08] LABS: Hemoglobin 9.7 g/dL (12.0-16.0); Mean Corpuscular HGB CONC 29.5 g/dL (32.0-36.0); Mean Platelet Volume 9.7 fL (7.4-10.4); Platelet Count 356 thou/uL (130-400); RBC Distribution Width 20.8 % (11.5-14.5); White Blood Cell (WBC) Count 24.6 thou/uL (4.8-10.8)
[2017-06-12 11:26] LABS: Band 2 % (5-11); Hypochromia MODERATE=16-30 cells (100X) (0-5/hpf); Lymphocytes 12 % (21-51); MDiff Complete? YES; Metamyelocyte 1 % (0-0); Microcytosis SLIGHT = 6-15 cells (100X) (0-5/hpf); Monocytes 13 % (0-10); Neutrophil 71 % (42-75); PLT Morphology Comment Appears Adequate; Polychromasia SLIGHT = 2-3 cells (100X) (0-2/hpf); Promyelocytes 1 % (0-0); Target Cells MODERATE= 6-15 cells (100X) (0-1/hpf)
[2017-06-13 06:10] LABS: Hemoglobin 9.4 g/dL (12.0-16.0); Mean Corpuscular HGB CONC 29.4 g/dL (32.0-36.0); Mean Corpuscular Hemoglobin 22.9 pg (27.0-31.0); Mean Corpuscular Volume 77.8 fl (81.0-99.0); Mean Platelet Volume 10.8 fL (7.4-10.4); Platelet Count 334 thou/uL (130-400); RBC Distribution Width 20.9 % (11.5-14.5); White Blood Cell (WBC) Count 45.8 thou/uL (4.8-10.8)
[2017-06-13 06:58] LABS: Anisocytosis SLIGHT = 6-15 cells (100X) (0-5/hpf); Band 11 % (5-11); Elliptocytes SLIGHT = 2-5 cells (100X) (0-1/hpf); Eosinophils 6 % (0-10); Lymphocytes 16 % (21-51); MDiff Complete? YES; Monocytes 11 % (0-10); Neutrophil 56 % (42-75)
[2017-06-13] MEDS: Mometasone/Formoterol 120 PUFF INHALER INH SCH ×2 (07:12→18:32)
[2017-06-13] MEDS: Polyethylene Glycol 3350 17 GM Packet PO SCH (08:16)
[2017-06-13] MEDS: predniSONE 20 MG TAB PO SCH (08:18)
[2017-06-13] MEDS ORDERED: Sodium Chloride 0.9% 500 ML IVPB SCH (08:45)
[2017-06-13] MEDS ORDERED: Lisinopril 5 MG TAB PO SCH (09:00)
[2017-06-13 09:26] LABS: Hemoglobin 8.8 g/dL (12.0-16.0); Mean Corpuscular HGB CONC 29.7 g/dL (32.0-36.0); Mean Corpuscular Volume 77.5 fl (81.0-99.0); Mean Platelet Volume 10.9 fL (7.4-10.4); Platelet Count 321 thou/uL (130-400); RBC Distribution Width 21.1 % (11.5-14.5); Red Blood Cell (RBC) Count 3.82 mill/uL (4.20-5.40); White Blood Cell (WBC) Count 46.4 thou/uL (4.8-10.8)
[2017-06-13 10:03] LABS: Band 12 % (5-11); Hypochromia MODERATE=16-30 cells (100X) (0-5/hpf); Lymphocytes 2 % (21-51); MDiff Complete? YES; Metamyelocyte 1 % (0-0); Microcytosis SLIGHT = 6-15 cells (100X) (0-5/hpf); Monocytes 12 % (0-10); Neutrophil 71 % (42-75); PLT Morphology Comment Appears Adequate; Polychromasia MODERATE = 3-4 cells (100X) (0-2/hpf); Reactive Lymphocytes 2 % (0-10); Rouleaux Formation SLIGHT = 1-5 cells (100X) (None Seen); Target Cells MODERATE= 6-15 cells (100X) (0-1/hpf)
[2017-06-13] MEDS: Acetaminophen/Codeine 30-300mg Tablet PO PRN ×2 (13:10→20:01)
[2017-06-13] MEDS: Ondansetron ODT 4 MG TAB SL PRN ×2 (13:10→20:01)
--- NOTE | 2017-06-13 19:26 | RAD ---
CHEST TWO VIEW 06/13/16 HISTORY: COPD. COMPARISON: Chest one view 06/06/17. FINDINGS: Patient has been extubated and the enteric tube has been removed. No focal confluent air space cons olidation, pneumothorax or effusion. Mild spondylytic changes of the lower thoracic spine. IMPRESSION: No acute intrathoracic abnormality POS: [facility]
[2017-06-13] MEDS: Piperacillin/Tazobactam 3.375 GM in Sodium Chloride 0.9% 100 ML IVPB SCH (19:59)
[2017-06-14] MEDS: Piperacillin/Tazobactam 3.375 GM in Sodium Chloride 0.9% 100 ML IVPB SCH ×3 (00:17→15:27)
[2017-06-14 01:31] LABS: Bilirubin Negative (Negative); Blood, Urine Small (Negative); Clarity CLOUDY (Clear); Glucose, Urine (Dipstick) Negative (Negative); Leukocyte Large (Negative); Nitrite Negative (Negative); Protein, Urine (Dipstick) Trace mg/dL (Neg-Trace); Specific Gravity, Urine 1.009 (1.002-1.036)
[2017-06-14 01:33] LABS: Hyaline Casts/LPF 0-3 HYALINE CAST LPF (0-3 Hyaline); Pathc Cast-AUWi Flag 0.54 (0-2.49)
[2017-06-14 01:38] LABS: Sperm-AUWi Flag 131.7 (0-9.9); Yeast-AUWi Flag 27.9 (0-25.0)
[2017-06-14 02:01] LABS: Crystals/HPF None Seen HPF (Negative); RBC/HPF 0-3 HPF (0-3); Renal Epithelial None Seen HPF (0-3); Sperm/HPF None Seen HPF (None Seen); Transitional Epithelial NONE SEEN HPF (0-3); Trichomonas/HPF 2+ HPF (None Seen); Yeast-All Forms None Seen HPF (None Seen)
[2017-06-14 02:02] LABS: Bacteria/HPF Rare-Few HPF (None Seen)
[2017-06-14] MEDS: Ondansetron ODT 4 MG TAB SL PRN ×3 (03:47→18:41)
[2017-06-14] MEDS: Acetaminophen/Codeine 30-300mg Tablet PO PRN ×3 (03:47→18:39)
[2017-06-14 06:00] LABS: Anion Gap 14 mmol/L (10-20); BUN (Urea Nitrogen) 23 mg/dL (9.8-20.1); Calc. Creatinine Clearance 81 mL/min (70-130); Calcium 8.8 mg/dL (7.8-10.44); Carbon Dioxide 29 mmol/L (22-29); Chloride 95 mmol/L (98-107); Estimated GFR-MDRD 88; Glucose 69 mg/dL (70-105); Potassium 4.9 mmol/L (3.5-5.1); Sodium 133 mmol/L (136-145)
[2017-06-14 07:39] LABS: Band 9 % (5-11); Hypochromia MODERATE=16-30 cells (100X) (0-5/hpf); Lymphocytes 2 % (21-51); MDiff Complete? YES; Mean Corpuscular HGB CONC 30.2 g/dL (32.0-36.0); Mean Corpuscular Hemoglobin 23.2 pg (27.0-31.0); Mean Corpuscular Volume 76.9 fl (81.0-99.0); Mean Platelet Volume 10.6 fL (7.4-10.4); Microcytosis SLIGHT = 6-15 cells (100X) (0-5/hpf); Monocytes 14 % (0-10); Myelocyte 2 % (0-0); Neutrophil 72 % (42-75); PLT Morphology Comment Appears Adequate; Platelet Count 283 thou/uL (130-400); Polychromasia MODERATE = 3-4 cells (100X) (0-2/hpf); RBC Distribution Width 20.9 % (11.5-14.5); Reactive Lymphocytes 1 % (0-10); Red Blood Cell (RBC) Count 3.44 mill/uL (4.20-5.40); White Blood Cell (WBC) Count 34.2 thou/uL (4.8-10.8)
[2017-06-14] MEDS: Mometasone/Formoterol 120 PUFF INHALER INH SCH ×2 (08:03→18:25)
[2017-06-14] MEDS ORDERED: Sodium Chloride 0.9% 500 ML IVPB SCH (09:15)
[2017-06-14] MEDS: predniSONE 20 MG TAB PO SCH (10:19)
[2017-06-14] MEDS: Sodium Chloride 0.9% 1,000 ML IV SCH ×2 (10:19→17:59)
[2017-06-14] MEDS: Polyethylene Glycol 3350 17 GM Packet PO SCH (10:19)
[2017-06-14 15:31] VITALS: BMI 21.0
[2017-06-14] MEDS ORDERED: cefTRIAXone\\ROCEPHIN 2 GM in Sodium Chloride 0.9% 100 ML IVPB SCH (16:00)
[2017-06-15 05:33] LABS: Anion Gap 15 mmol/L (10-20); BUN (Urea Nitrogen) 22 mg/dL (9.8-20.1); Calc. Creatinine Clearance 82 mL/min (70-130); Calcium 8.9 mg/dL (7.8-10.44); Carbon Dioxide 26 mmol/L (22-29); Chloride 95 mmol/L (98-107); Estimated GFR-MDRD 89; Glucose 66 mg/dL (70-105); Potassium 4.5 mmol/L (3.5-5.1); Sodium 131 mmol/L (136-145)
[2017-06-15 05:47] LABS: Band 10 % (5-11); Hypochromia SLIGHT = 6-15 cells (100X) (0-5/hpf); Lymphocytes 4 % (21-51); MDiff Complete? YES; Mean Corpuscular HGB CONC 28.6 g/dL (32.0-36.0); Mean Corpuscular Hemoglobin 22.8 pg (27.0-31.0); Mean Corpuscular Volume 79.7 fl (81.0-99.0); Mean Platelet Volume 10.9 fL (7.4-10.4); Monocytes 12 % (0-10); Neutrophil 74 % (42-75); PLT Morphology Comment Appears Adequate; Platelet Count 314 thou/uL (130-400); RBC Distribution Width 21.4 % (11.5-14.5); Red Blood Cell (RBC) Count 3.93 mill/uL (4.20-5.40); Target Cells MODERATE= 6-15 cells (100X) (0-1/hpf); White Blood Cell (WBC) Count 37.5 thou/uL (4.8-10.8)
[2017-06-15] MEDS: Sodium Chloride 0.9% 1,000 ML IV SCH ×2 (05:56→16:59)
[2017-06-15] MEDS: Mometasone/Formoterol 120 PUFF INHALER INH SCH ×2 (08:08→19:08)
[2017-06-15] MEDS: predniSONE 20 MG TAB PO SCH (08:54)
[2017-06-15] MEDS: Polyethylene Glycol 3350 17 GM Packet PO SCH (08:54)
[2017-06-15] MEDS: Ondansetron ODT 4 MG TAB SL PRN ×2 (08:54→23:56)
--- NOTE | 2017-06-15 13:53 | CON ---
DATE OF CONSULTATION: 06/15/2017 REASON FOR CONSULTATION: Leukemoid reaction versus infection. HISTORY OF PRESENT ILLNESS: A 61-year-old patient who has a history of COPD and reportedly developed progressively worsening abdominal pain, mostly localized in the upper segments of the abdomen over t he past 2 weeks prior to admission. She developed some worsening respiratory symptoms days prior to the admission event and when she arrived to the emergency room, her main symptom was shortness of alicia ath. She had delirium as well associated with the respiratory decompensation. She was placed on BiP AP and given inhalers and Solu-Medrol. A CT angio showed no pulmonary embolism, but demonstrated abn ormalities consistent with possible liver metastases. She eventually required intubation due to alte red mental status. In the hospital, she underwent colonoscopy which identified nearly obstructing co paola mass about 40 cm which was biopsied. The colonoscopy was therefore incomplete. She did have heike e nodules in the second portion of the duodenum which would demonstrate to be benign hematomas. The patient has developed worsening neutrophil elevation as she is still on prednisone daily and tapered from methylprednisolone. She is awake and alert, eating. She denies any headaches, no visual sympto ms, sore throat, odynophagia or dysphagia. A little bit of cough, but no sputum production. No back pain. Mild to moderate abdominal pain, no diarrhea, no genitourinary symptoms, no joint symptoms, s welling of the lower extremities noted. PAST MEDICAL HISTORY: Tubal ligation, thyroid surgery, COPD, depression, and osteoarthritis. FAMILY HISTORY: Noncontributory. ALLERGIES: None. SOCIAL HISTORY: Used to work in a fast food restaurants. A former smoker with a heavy history of sm oking. No alcoholic beverage use. , lives in [place]. PHYSICAL EXAMINATION: VITAL SIGNS: Temperature max 98.9, blood pressure 105/70, pulse 97, respirations 16, O2 sat 98%. SKIN: Shows peripheral IV access. No Otero catheter. She has no other areas of skin breakdown. No lymphadenopathy. She has evidence of temporal wasting. HEENT: Ocular movements are conjugate. Sclerae are white. Pupils are 2 mm and reactive, symmetric. Oral cavity with no [place] teeth remaining, otherwise unremarkable oral cavity exam. NECK: Supple, no jugular venous distention. LUNGS: With symmetric clear breath sounds. HEART: S1, S2, regular rate. No murmurs. No S3. ABDOMEN: Soft with enlarged liver of about 4 cm below the right costal margin with indurated texture of the parenchyma. No splenomegaly noted. EXTREMITIES: No other masses. No bladder distention. There are 2-3+ edema in lower extremities. K nees have no evidence of swelling or fluid, no erythema. Pulses are 1+ in dorsalis pedis. She moves extremities equally. NEUROLOGIC: Cognitive function appears to be intact. LABORATORY DATA AND IMAGING DATA: White cell count was up to 46,000, now at 37,000, hemoglobin 9, pl atelets 314, 74% neutrophils, 10% bands, pH 7.35, pCO2 51, pO2 55, sodium 131, creatinine 0.8, alkali ne phosphatase 348, CK 336, AST 81, ALT 19, albumin 3.3, globulin 3.6, lipase 20, TSH 0.64. Urinalys is with greater than 50 WBCs. Microbiology with negative blood cultures, negative urine culture. We have a chest x-ray from two days ago with no intrathoracic abnormality and there is a chest CT which was done on admission with no PE and innumerable masses throughout the liver consistent with metasta tic disease, periportal adenopathy, lytic posterolateral 9th rib lesions. The pathology of the speci men from the gastrointestinal biopsy with invasive moderately differentiated colonic adenocarcinoma. ASSESSMENT: 1. Chronic obstructive pulmonary disease. 2. Worsening abdominal pain, hepatomegaly, likely metastatic colon cancer with liver and bone mets a s well as lymph nodes. 3. Elevated white blood cell count DISCUSSION: The elevated WBC count is probably a combination of paraneoplastic metastatic colon canc er effects plus the added corticosteroid treatment. Recommend discontinuation of antimicrobial thera py at this point and the treatment for primary malignancy.
[2017-06-15] MEDS: Acetaminophen/Codeine 30-300mg Tablet PO PRN (23:51)
[2017-06-16] MEDS: Mometasone/Formoterol 120 PUFF INHALER INH SCH (06:47)
[2017-06-16] MEDS ORDERED: predniSONE 20 MG TAB PO SCH (08:00)
[2017-06-16 08:43] VITALS: TEMP 98
[2017-06-16] MEDS: Polyethylene Glycol 3350 17 GM Packet PO SCH (08:59)
[2017-06-16] MEDS: Ondansetron ODT 4 MG TAB SL PRN (09:03)
[2017-06-16] MEDS: Acetaminophen/Codeine 30-300mg Tablet PO PRN (09:15)
[2017-06-16 14:14] VITALS: BP 114/74
--- NOTE | 2017-06-18 10:55 | DIS ---
DATE OF ADMISSION: 06/06/2017 DATE OF DISCHARGE: 06/16/2017 ADMITTING DIAGNOSES: 1. Acute respiratory failure. 2. Chronic obstructive pulmonary disease with acute exacerbation. 3. Severe anemia, possible metastasis to the liver and rule out colon cancer. 4. Hypokalemia. 5. History of black stools and weight loss. FINAL DIAGNOSES: 1. Acute respiratory failure secondary to chronic obstructive pulmonary disease exacerbation, impro ed. 2. Metastatic colon cancer with metastasis to the liver. 3. Severe anemia, status post transfusion. 4. Hypotension, improved. 5. Hypokalemia, corrected. 6. Anorexia and weight loss, improving. BRIEF SUMMARY OF HOSPITAL COURSE: Ms. León is a 61-year-old -[place] female with past [facility] history of hypertension, admitted because of severe anemia. Patient was anemic, has been losing weight for a few days. Prior to the admission, patient was found to have possible metastasis to the liver, suspected to have colon cancer. Patient was initially in the respiratory failure due to chron ic obstructive pulmonary disease. She was intubated and admitted to CCU. Pulmonary consult was done . The patient was seen by Dr. Moya. IMPRESSION: The patient has acute hypoxic respiratory failure due to chronic obstructive pulmonary d isease exacerbation, suggested neb treatments, Solu-Medrol, ventilator support and also advised trans fusion for severe anemia. Patient had a hemoglobin of 6.7 on admission and was transfused 2 units an d hemoglobin went up to 9 grams, stayed around 9 grams after that. A GI consult was done and the pat ient was seen by Dr. Boucher, who suggested EGD and colonoscopy in view of her anemia and her elevation in malignancy. Patient underwent EGD and colonoscopy. EGD showed submucosal nodule, otherwise norm al and colonoscopy showed near obstructing colonic mass. Patient had a biopsy done which showed cesar ocarcinoma, which is invasive, moderately differentiated. An Oncology consult was done. Initially, a surgical consult was done. Patient was seen by Dr. Esquivel. He felt the patient is able to tolera te a diet as well as the colon mass is not completely obstructing. He suggested Oncology input as we ll as possible palliative care. Patient was seen by Oncology and it was recommended she may be a can didate for oral medication for metastatic disease. They suggested outpatient follow up. Because the patient developed marked leukocytosis, her WBC count which was 19,000 went up to 24,000, but on 05/25, it went up to 45,000 and repeat also confirmed 46,000 and they followed up on 06/14/2017 and 06/15/2017 that came down to 34,000 and 37,000. She did not have any evidence of infection anywhere. Oncology felt that WBC count to be due to steroids as well as metastatic cancer. Patient was also seen by Dr. Sterling. He felt it is not infectious in origin, suggested to stop the antimicrobial, so a ntibiotic was stopped. She was hypotensive for a few days, and was given IV fluid boluses, after whi ch her blood pressure has improved and stabilized. Patient has been feeling well and no shortness of breath, no chest pain, and she has been eating much better, so she is being discharged home, at the time of discharge, she is stable. Her vital signs are stable. Lungs clear. Heart sound regular. A bdomen is soft, nontender. Bowel sounds present. DISCHARGE MEDICATIONS: Includes DuoNeb q.i.d., MiraLax 17 grams daily, Dulera 200/5 mcg two puffs b. i.d., Tylenol with codeine 1 q.i.d. p.r.n. FOLLOWUP: Patient will come for followup in 2 weeks. Also follow with Oncology in 2 weeks.
== END 2017-06-16 12:17 | disposition home or self-care (01) | DRG 208 ==
LOC: ERS 09:37 → CCU 11:16 → T4-B 06-09 14:31
PROVIDERS: ADMIT Internal Medicine; ATTEND Internal Medicine
PROC: 5A1945Z Respiratory Ventilation, 24-96 Consecutive Hours (ICD-10-PCS; principal; 2017-06-06)
PROC: 0BH17EZ Insertion of Endotracheal Airway into Trachea, Via Natural or Artificial Opening (ICD-10-PCS; 2017-06-06)
PROC: 5A09357 Assistance with Respiratory Ventilation, Less than 24 Consecutive Hours, Continuous Positive Airway Pressure (ICD-10-PCS; 2017-06-06)
PROC: 0DD98ZX Extraction of Duodenum, Via Natural or Artificial Opening Endoscopic, Diagnostic (ICD-10-PCS; 2017-06-07)
PROC: 0DBN8ZX Excision of Sigmoid Colon, Via Natural or Artificial Opening Endoscopic, Diagnostic (ICD-10-PCS; 2017-06-07)
PROC: 30233N1 Transfusion of Nonautologous Red Blood Cells into Peripheral Vein, Percutaneous Approach (ICD-10-PCS; 2017-06-07)
DX: J96.00 Acute respiratory failure, unspecified whether with hypoxia or hypercapnia (principal); C78.7 Secondary malignant neoplasm of liver and intrahepatic bile duct; C79.51 Secondary malignant neoplasm of bone; J44.1 Chronic obstructive pulmonary disease with (acute) exacerbation; C18.7 Malignant neoplasm of sigmoid colon; D62 Acute posthemorrhagic anemia; N39.0 Urinary tract infection, site not specified; D64.9 Anemia, unspecified; F32.9 Major depressive disorder, single episode, unspecified; M19.079 Primary osteoarthritis, unspecified ankle and foot; Z87.891 Personal history of nicotine dependence; E87.6 Hypokalemia; C80.1 Malignant (primary) neoplasm, unspecified; F17.210 Nicotine dependence, cigarettes, uncomplicated
CPT/HCPCS: 31500; 36415; 36416; 36430; 51702; 71045; 71046; 71275; 80048; 80053; 81001; 82378; 82553; 82805; 83690; 83735; 83880; 84100; 84443; 84484; 85025; 85060; 85379; 85610; 86850; 86900; 86901; 87040; 87086; 88305; 93005; 94002; 94003; 94640; 94660; 94760; 96361; 96365; 96375; C9113; G8978-GP-CK; G8979-GP-CI; J0696; J2270; J2543; J2704; J2930; J3010; J3480; J7050; J7506; J7620; P9016; Q0162